=== PATIENT | female | born 1995 | race Caucasian/White ===

== ENCOUNTER 2020-11-25 18:10 | Inpatient (IN) | payer OTHER, MEDICAID, SELFPAY ==
[~2020-11-25] VITALS: Ht 157.5 cm; Wt 81.6 kg
[2020-11-25 18:10] VITALS: BP_SYST 92
[2020-11-25] MEDS ORDERED: NORMAL SALINE 5 ML DISP.SYRIN IVF SCH (18:30)
[2020-11-25] MEDS ORDERED: NACL 0.9% 1,000 ML IV ONE (18:30)
[2020-11-25] MEDS ORDERED: DIPHENHYDRAMINE INJ 50 MG/ML VIAL IVP ONE (18:30)
[2020-11-25] MEDS ORDERED: METOCLOPRAMIDE HCL 10 MG/2 ML VIAL IVP ONE (18:30)
[2020-11-25 18:59] LABS: BASOPHILS % (AUTO) 0.3 % (0.0-2.0); HEMATOCRIT 36.9 % (36-48); HEMOGLOBIN 11.8 g/dL (12.0-16.0); LYMPHOCYTES # (AUTO) 1.1 K/uL (1.0-5.5); LYMPHOCYTES % (AUTO) 9.7 % (20.5-51.5); MEAN CORPUSCULAR HEMOGLOBIN 26 pg (27-31); MEAN CORPUSCULAR HGB CONC 32 % (32-36); MEAN CORPUSCULAR VOLUME 83 fL (79.0-98.0); MONOCYTES # (AUTO) 0.3 K/uL (0.0-1.0); MONOCYTES % (AUTO) 2.6 % (1.7-9.3); NEUTROPHILS # (AUTO) 9.7 K/uL (1.8-7.7); NEUTROPHILS % (AUTO) 87.4 % (40.0-70.0); PLATELET COUNT (AUTO) 325 K/uL (130-430); RED BLOOD CELL COUNT(AUTO) 4.47 MIL/uL (4.2-6.2); RED CELL DISTRIBUTION WIDTH 18.9 % (9.0-15.0); WHITE BLOOD COUNT (AUTO) 11.1 K/uL (4.8-10.8)
[2020-11-25] MEDS ORDERED: MAGNESIUM SULFATE 1 GM/2 ML VIAL IVP ONE (19:00)
[2020-11-25 19:06] LABS: CALCIUM 8.7 mg/dL (8.4-11.0); CREATININE 0.73 mg/dL (0.55-1.30); POTASSIUM 3.8 mmol/L (3.5-5.1)
[2020-11-25 19:20] LABS: BILIRUBIN,URINE NEGATIVE (NEGATIVE); COLOR,URINE YELLOW (YELLOW); GLUCOSE,URINE 2+ (NEGATIVE); KETONES,URINE 3+ (NEGATIVE); LEUKOCYTE ESTERASE ,URINE NEGATIVE (NEGATIVE); NITRITE, URINE NEGATIVE (NEGATIVE); PROTEIN URINE TRACE (NEGATIVE); UROBILINOGEN,URINE 0.2 (0.2-1.0)
[2020-11-25 19:23] LABS: BLOOD, URINE TRACE (NEGATIVE); CLARITY/URINE HAZY (CLEAR)
[2020-11-25] MEDS ORDERED: INSULIN NPH/REGULAR 70-30, 100 UNITS/ML, 10 ML VIAL SUBCUT ONE (19:30)
[2020-11-25] MEDS ORDERED: THIAMINE HCL 100 MG in NS 50 ML IV ONE (19:30)
[2020-11-25 19:40] LABS: ALBUMIN 3.1 g/dL (3.4-4.8); BILIRUBIN,DIRECT 0.2 mg/dL (0.0-0.3); TOTAL BILIRUBIN 0.4 mg/dL (0.0-1.0)
[2020-11-25 19:46] LABS: BACTERIA,URINE FEW /HPF (None Seen); MUCUS,URINE None Seen /LPF (None Seen); WBC,URINE 0-3 /HPF (0-3)
[2020-11-25] MEDS ORDERED: PROMETHAZINE HCL 25 MG TABLET PO PRN (21:45)
[2020-11-25] MEDS ORDERED: THIAMINE HCL 100 MG/ML VIAL ONE (22:05)
[2020-11-25] MEDS ORDERED: MAGNESIUM SULFATE 50 ML IV ONE (22:05)
[2020-11-25] MEDS: NACL 0.9% 1,000 ML IV SCH (23:15)
[2020-11-25] MEDS: INSULIN REGULAR, HUMAN 100 UNITS/ML, 10 ML VIAL (humuLIN R) SUBCUT PRN (23:15)
[2020-11-25] MEDS: CALCIUM CARBONATE 500 MG/ TAB.CHEW PO PRN (23:16)
[2020-11-26] MEDS: ONDANSETRON HCL 4 MG/2 ML VIAL IVP PRN ×4 (00:01→20:17)
[2020-11-26] MEDS ORDERED: PROMETHAZINE INJ.Non-Formulary 25 MG/ML AMP IVP PRN (01:45)
[2020-11-26] MEDS: NACL 0.9% 1,000 ML IV SCH ×3 (06:46→23:05)
[2020-11-26 07:03] LABS: ALBUMIN 2.3 g/dL (3.4-4.8); CALCIUM 7.7 mg/dL (8.4-11.0); CREATININE 0.54 mg/dL (0.55-1.30); POTASSIUM 3.5 mmol/L (3.5-5.1); TOTAL BILIRUBIN 0.4 mg/dL (0.0-1.0)
[2020-11-26] MEDS: METOCLOPRAMIDE HCL 10 MG/2 ML VIAL IVP PRN ×2 (08:52→23:05)
[2020-11-26 09:17] VITALS: BP_SYST 85
[2020-11-26] MEDS ORDERED: PANTOPRAZOLE SODIUM 40 MG/VIAL (PROTONIX) IVP ONE (12:00)
[2020-11-26] MEDS: INSULIN REGULAR, HUMAN 100 UNITS/ML, 10 ML VIAL (humuLIN R) SUBCUT PRN (12:38)
[2020-11-26] MEDS ORDERED: DIPHENHYDRAMINE INJ 50 MG/ML VIAL IVP PRN (18:30)
[2020-11-26] MEDS ORDERED: DIPHENHYDRAMINE INJ 50 MG/ML VIAL ONE (18:33)
[2020-11-26] MEDS: cefTRIAXone 1 GM in D5W 50 ML IV SCH (18:37)
[2020-11-27] MEDS: ONDANSETRON HCL 4 MG/2 ML VIAL IVP PRN ×4 (02:22→20:22)
[2020-11-27] MEDS: METOCLOPRAMIDE HCL 10 MG/2 ML VIAL IVP PRN ×4 (05:09→22:27)
[2020-11-27] MEDS: NACL 0.9% 1,000 ML IV SCH (07:41)
[2020-11-27] MEDS: INSULIN REGULAR, HUMAN 100 UNITS/ML, 10 ML VIAL (humuLIN R) SUBCUT PRN (07:42)
[2020-11-27] MEDS: CALCIUM CARBONATE 500 MG/ TAB.CHEW PO PRN (18:44)
[2020-11-27] MEDS: cefTRIAXone 1 GM in D5W 50 ML IV SCH (18:44)
[2020-11-28] MEDS: NACL 0.9% 1,000 ML IV SCH
[2020-11-28] MEDS: CALCIUM CARBONATE 500 MG/ TAB.CHEW PO PRN ×4 (00:10→20:12)
[2020-11-28] MEDS ORDERED: PROMETHAZINE INJ.Non-Formulary 25 MG/ML AMP IVP PRN (01:15)
[2020-11-28] MEDS ORDERED: PROMETHAZINE INJ.Non-Formulary 25 MG/ML AMP IM PRN ×2 (01:30)
[2020-11-28] MEDS: ONDANSETRON HCL 4 MG/2 ML VIAL IVP PRN ×2 (02:17→07:48)
[2020-11-28] MEDS: DEXAMETHASONE SOD PHOSPHATE 4 MG/ML VIAL IVP SCH ×4 (04:00→22:19)
[2020-11-28] MEDS: METOCLOPRAMIDE HCL 10 MG/2 ML VIAL IVP PRN ×2 (04:22→10:02)
[2020-11-28] MEDS ORDERED: DEXAMETHASONE SOD PHOSPHATE 4 MG/ML VIAL ONE (04:42)
[2020-11-28 08:17] LABS: FREE T4 (FREE THYROXINE) 1.2 ng/dl (0.8-1.5); THYROID STIMULATING HORMONE 0.53 uIu/mL (0.36-3.74)
[2020-11-28] MEDS: INSULIN REGULAR, HUMAN 100 UNITS/ML, 10 ML VIAL (humuLIN R) SUBCUT PRN ×2 (10:00→20:15)
[2020-11-28] MEDS: ONDANSETRON HCL 4 MG/2 ML VIAL IVP SCH ×2 (14:05→19:46)
[2020-11-28] MEDS: METOCLOPRAMIDE HCL 10 MG/2 ML VIAL IVP SCH ×2 (15:59→22:17)
[2020-11-28] MEDS ORDERED: FOLIC ACID 1 MG, THIAMINE HCL 100 MG, MAGNESIUM SULFATE 1 GM, MVI 10 ML in NACL 0.9% 1,... IV SCH (21:00)
[2020-11-28] MEDS ORDERED: PANTOPRAZOLE SODIUM 40 MG/VIAL (PROTONIX) ONE (21:44)
[2020-11-28] MEDS: PANTOPRAZOLE SODIUM 40 MG/VIAL (PROTONIX) IVP SCH (22:13)
[2020-11-29] MEDS: ONDANSETRON HCL 4 MG/2 ML VIAL IVP SCH ×4 (01:50→22:08)
[2020-11-29] MEDS: METOCLOPRAMIDE HCL 10 MG/2 ML VIAL IVP SCH ×4 (04:00→22:06)
[2020-11-29] MEDS: CALCIUM CARBONATE 500 MG/ TAB.CHEW PO PRN ×4 (04:01→22:13)
[2020-11-29] MEDS: DEXAMETHASONE SOD PHOSPHATE 4 MG/ML VIAL IVP SCH ×4 (04:03→22:04)
[2020-11-29] MEDS: INSULIN REGULAR, HUMAN 100 UNITS/ML, 10 ML VIAL (humuLIN R) SUBCUT PRN ×3 (06:48→20:25)
[2020-11-29] MEDS ORDERED: FOLIC ACID 1 MG, THIAMINE HCL 100 MG, MAGNESIUM SULFATE 1 GM, MVI 10 ML in NACL 0.9% 1,... IV SCH ×2 (08:00→09:00)
[2020-11-29] MEDS: NACL 0.9% 1,000 ML IV SCH ×2 (09:12→20:32)
[2020-11-29] MEDS: PANTOPRAZOLE SODIUM 40 MG/VIAL (PROTONIX) IVP SCH ×2 (09:47→20:54)
[2020-11-29] MEDS: MVI 10 ML, FOLIC ACID 1 MG in NACL 0.9% 1,000 ML IV SCH (11:03)
[2020-11-29] MEDS: THIAMINE HCL 100 MG, MAGNESIUM SULFATE 1 GM in NS 100 ML IV SCH (11:03)
[2020-11-29] MEDS ORDERED: PROCHLORPERAZINE EDISYLATE 10 MG/2 ML VIAL IM PRN (19:30)
[2020-11-29] MEDS: AMITRIPTYLINE HCL 25 MG TABLET (ELAVIL) PO SCH (20:53)
[2020-11-29] MEDS: PYRIDOXINE HCL 50 MG TABLET PO SCH (20:53)
[2020-11-30] MEDS: ONDANSETRON HCL 4 MG/2 ML VIAL IVP SCH ×4 (03:56→20:59)
[2020-11-30] MEDS: METOCLOPRAMIDE HCL 10 MG/2 ML VIAL IVP SCH ×4 (03:57→20:58)
[2020-11-30] MEDS: NACL 0.9% 1,000 ML IV SCH ×2 (04:04→23:00)
[2020-11-30] MEDS: INSULIN REGULAR, HUMAN 100 UNITS/ML, 10 ML VIAL (humuLIN R) SUBCUT PRN ×3 (06:48→20:55)
[2020-11-30] MEDS: CALCIUM CARBONATE 500 MG/ TAB.CHEW PO PRN (06:53)
[2020-11-30] MEDS: PANTOPRAZOLE SODIUM 40 MG/VIAL (PROTONIX) IVP SCH ×2 (08:55→21:39)
[2020-11-30] MEDS: PYRIDOXINE HCL 50 MG TABLET PO SCH ×3 (09:51→21:38)
[2020-11-30] MEDS: THIAMINE HCL 100 MG, MAGNESIUM SULFATE 1 GM in NS 100 ML IV SCH (09:51)
[2020-11-30] MEDS: MVI 10 ML, FOLIC ACID 1 MG in NACL 0.9% 1,000 ML IV SCH (12:00)
[2020-11-30] MEDS ORDERED: INSULIN REGULAR, HUMAN 100 UNITS/ML, 10 ML VIAL ONE (20:34)
[2020-11-30] MEDS ORDERED: INSULIN NPH 100 UNITS/ML 10 ML VIAL ONE (20:47)
[2020-11-30] MEDS: PROCHLORPERAZINE EDISYLATE 10 MG/2 ML VIAL IM SCH (21:00)
[2020-11-30] MEDS: AMITRIPTYLINE HCL 25 MG TABLET (ELAVIL) PO SCH (21:37)
[2020-12-01] MEDS: PROCHLORPERAZINE EDISYLATE 10 MG/2 ML VIAL IM SCH ×3 (01:00→07:00)
[2020-12-01] MEDS: ONDANSETRON HCL 4 MG/2 ML VIAL IVP SCH ×2 (03:07→08:46)
[2020-12-01] MEDS: METOCLOPRAMIDE HCL 10 MG/2 ML VIAL IVP SCH ×2 (03:08→08:45)
[2020-12-01] MEDS ORDERED: INSULIN NPH/REGULAR 70-30, 100 UNITS/ML, 10 ML VIAL ONE (06:30)
[2020-12-01] MEDS: INSULIN REGULAR, HUMAN 100 UNITS/ML, 10 ML VIAL (humuLIN R) SUBCUT PRN (06:45)
[2020-12-01] MEDS: PANTOPRAZOLE SODIUM 40 MG/VIAL (PROTONIX) IVP SCH (08:45)
[2020-12-01] MEDS: THIAMINE HCL 100 MG, MAGNESIUM SULFATE 1 GM in NS 100 ML IV SCH (08:46)
[2020-12-01] MEDS: PYRIDOXINE HCL 50 MG TABLET PO SCH (11:10)
[2020-12-01] MEDS ORDERED: INSULIN REGULAR, HUMAN 100 UNITS/ML, 10 ML VIAL ONE (12:14)
== END 2020-12-01 12:35 | disposition home or self-care (01) | DRG 832 ==
LOC: SED 18:10 → SPU 20:06
PROVIDERS: ADMIT Obstetrics & Gynecology; ATTEND Obstetrics & Gynecology
DX: O21.0 Mild hyperemesis gravidarum (principal); O24.112 Pre-existing type 2 diabetes mellitus, in pregnancy, second trimester; E11.9 Type 2 diabetes mellitus without complications; Z20.822 Contact with and (suspected) exposure to COVID-19; Z3A.15 15 weeks gestation of pregnancy
CPT/HCPCS: 36415; 36600; 76801; 76817; 80048; 80053; 80076; 81000-TC; 82803-TC; 82947-TC; 82962; 83690-TC; 84439; 84443-TC; 84702-TC; 85025; 86886; 86900; 86901; 87086; 96361; 96372; 96374; 99285; C9113; J0696; J0780; J1100; J1200; J1815; J2405; J2765; J3411; J3475; J3490; J7030; J7060; Q0169

== ENCOUNTER 2020-12-06 18:03 | Observation (INO) | payer MEDICAID, SELFPAY ==
[~2020-12-06] VITALS: Ht 160 cm; Wt 57.2 kg
[2020-12-06 18:12] VITALS: BP_SYST 123
[2020-12-06] MEDS ORDERED: NACL 0.9% 1,000 ML IV ONE (18:30)
[2020-12-06] MEDS ORDERED: METOCLOPRAMIDE HCL 10 MG/2 ML VIAL IVP ONE ×2 (18:45→23:30)
[2020-12-06] MEDS ORDERED: PYRIDOXINE HCL 50 MG TABLET PO SCH (18:45)
[2020-12-06 19:00] LABS: BASOPHILS # (AUTO) 0.1 K/uL (0.0-0.2); BASOPHILS % (AUTO) 0.5 % (0.0-2.0); EOSINOPHILS % (AUTO) 0.2 % (0.0-4.0); HEMOGLOBIN 13.6 g/dL (12.0-16.0); LYMPHOCYTES # (AUTO) 1.2 K/uL (1.0-5.5); LYMPHOCYTES % (AUTO) 12.9 % (20.5-51.5); MEAN CORPUSCULAR HEMOGLOBIN 28 pg (27-31); MEAN CORPUSCULAR HGB CONC 34 % (32-36); MEAN CORPUSCULAR VOLUME 82 fL (79.0-98.0); MONOCYTES # (AUTO) 0.6 K/uL (0.0-1.0); MONOCYTES % (AUTO) 6.4 % (1.7-9.3); NEUTROPHILS # (AUTO) 7.6 K/uL (1.8-7.7); PLATELET COUNT (AUTO) 336 K/uL (130-430); RED BLOOD CELL COUNT(AUTO) 4.91 MIL/uL (4.2-6.2); RED CELL DISTRIBUTION WIDTH 19.5 % (9.0-15.0); WHITE BLOOD COUNT (AUTO) 9.5 K/uL (4.8-10.8)
[2020-12-06 20:05] LABS: ALBUMIN 3.3 g/dL (3.4-4.8); CALCIUM 9.5 mg/dL (8.4-11.0); CREATININE 0.66 mg/dL (0.55-1.30); TOTAL BILIRUBIN 0.4 mg/dL (0.0-1.0)
[2020-12-06 20:14] LABS: POTASSIUM 2.9 mmol/L (3.5-5.1)
[2020-12-06] MEDS ORDERED: KCL 20 mEq in 100 mL (PREMIX) 200 ML IV ONE (20:27)
[2020-12-06] MEDS: POTASSIUM CHLORIDE 20 MEQ TAB.PRT.SR PO ONE ×2 (20:30→20:31)
[2020-12-06] MEDS ORDERED: KCL 40 mEq in 100 mL (PREMIX) 100 ML IV ONE (20:30)
[2020-12-06] MEDS ORDERED: KCL 20 mEq in D5/0.45NS 1000mL 1,000 ML IV SCH (23:00)
[2020-12-06] MEDS ORDERED: MAGNESIUM SULFATE 50 ML IV ONE ×2 (23:15→23:47)
[2020-12-06] MEDS ORDERED: METOCLOPRAMIDE HCL 10 MG/2 ML VIAL ONE (23:24)
[2020-12-06] MEDS ORDERED: FAMOTIDINE 20 MG TABLET PO ONE (23:30)
[2020-12-06] MEDS ORDERED: FAMOTIDINE PF 20 MG/2 ML VIAL IVP ONE (23:45)
[2020-12-06] MEDS ORDERED: KCL 20 mEq in 0.45% NS 1000 mL 1,000 ML IV SCH (23:45)
[2020-12-07] MEDS ORDERED: FAMOTIDINE PF 20 MG/2 ML VIAL IVP ONE
[2020-12-07 00:30] VITALS: BP_SYST 111
[2020-12-07 01:11] VITALS: BP_SYST 111
[2020-12-07] MEDS ORDERED: KCL 20 mEq in 0.45% NS 1000 mL 1,000 ML IV ONE (01:15)
[2020-12-07 07:01] LABS: BASOPHILS % (AUTO) 0.3 % (0.0-2.0); EOSINOPHILS % (AUTO) 0.3 % (0.0-4.0); HEMOGLOBIN 11.2 g/dL (12.0-16.0); LYMPHOCYTES # (AUTO) 1.9 K/uL (1.0-5.5); LYMPHOCYTES % (AUTO) 21.5 % (20.5-51.5); MEAN CORPUSCULAR HEMOGLOBIN 28 pg (27-31); MEAN CORPUSCULAR HGB CONC 34 % (32-36); MEAN CORPUSCULAR VOLUME 82 fL (79.0-98.0); MONOCYTES # (AUTO) 0.6 K/uL (0.0-1.0); NEUTROPHILS # (AUTO) 6.3 K/uL (1.8-7.7); NEUTROPHILS % (AUTO) 70.9 % (40.0-70.0); PLATELET COUNT (AUTO) 285 K/uL (130-430); RED BLOOD CELL COUNT(AUTO) 4.01 MIL/uL (4.2-6.2); RED CELL DISTRIBUTION WIDTH 19.4 % (9.0-15.0); WHITE BLOOD COUNT (AUTO) 8.9 K/uL (4.8-10.8)
[2020-12-07 07:18] LABS: ALBUMIN 2.5 g/dL (3.4-4.8); CALCIUM 7.8 mg/dL (8.4-11.0); CREATININE 0.44 mg/dL (0.55-1.30); POTASSIUM 3.2 mmol/L (3.5-5.1); TOTAL BILIRUBIN 0.3 mg/dL (0.0-1.0)
[2020-12-07] MEDS ORDERED: KCL 40 mEq in 100 mL (PREMIX) 100 ML IV ONE (08:15)
[2020-12-07 08:30] VITALS: BP_SYST 112
[2020-12-07 09:22] VITALS: BP_SYST 112
[2020-12-08] MEDS ORDERED: TRAM100T28 PO (13:46)
== END 2020-12-07 09:30 | disposition home or self-care (01) ==
LOC: SED 18:03 → STU 22:59
PROVIDERS: ADMIT Preventive Medicine Preventive Medicine/Occupational Environmental Medicine; ATTEND Preventive Medicine Preventive Medicine/Occupational Environmental Medicine
DX: O99.282 Endocrine, nutritional and metabolic diseases complicating pregnancy, second trimester (principal); E87.6 Hypokalemia; Z20.822 Contact with and (suspected) exposure to COVID-19; O21.9 Vomiting of pregnancy, unspecified; O26.892 Other specified pregnancy related conditions, second trimester; R55 Syncope and collapse; O24.012 Pre-existing type 1 diabetes mellitus, in pregnancy, second trimester; E10.9 Type 1 diabetes mellitus without complications; Z3A.17 17 weeks gestation of pregnancy
CPT/HCPCS: 36415 ×2; 80053 ×2; 83690; 84443; 85025 ×2; 87426; 93005; 96361; 96365; 96366 ×2; 96368; 96375 ×2; 96376; 99284; G0378 ×2; J2765; J3475; J3480; J3490

== ENCOUNTER 2020-12-08 10:49 | Emergency (ER) | payer MEDICAID, SELFPAY ==
[2020-12-08] MEDS ORDERED: NACL 0.9% 1,000 ML IV ONE (11:15)
[2020-12-08] MEDS ORDERED: METOCLOPRAMIDE HCL 10 MG/2 ML VIAL IVP ONE (11:15)
[2020-12-08 11:27] VITALS: BP_SYST 115
[2020-12-08 11:37] LABS: BASOPHILS # (AUTO) 0.1 K/uL (0.0-0.2); BASOPHILS % (AUTO) 0.8 % (0.0-2.0); EOSINOPHILS % (AUTO) 0.1 % (0.0-4.0); HEMATOCRIT 36.8 % (36-48); HEMOGLOBIN 12.5 g/dL (12.0-16.0); LYMPHOCYTES % (AUTO) 12.9 % (20.5-51.5); MEAN CORPUSCULAR HEMOGLOBIN 28 pg (27-31); MEAN CORPUSCULAR HGB CONC 34 % (32-36); MEAN CORPUSCULAR VOLUME 82 fL (79.0-98.0); MONOCYTES # (AUTO) 0.3 K/uL (0.0-1.0); MONOCYTES % (AUTO) 4.2 % (1.7-9.3); NEUTROPHILS # (AUTO) 6.2 K/uL (1.8-7.7); PLATELET COUNT (AUTO) 320 K/uL (130-430); RED CELL DISTRIBUTION WIDTH 19.6 % (9.0-15.0); WHITE BLOOD COUNT (AUTO) 7.5 K/uL (4.8-10.8)
[2020-12-08 11:55] LABS: ALBUMIN 2.9 g/dL (3.4-4.8); CALCIUM 8.7 mg/dL (8.4-11.0); CREATININE 0.48 mg/dL (0.55-1.30); POTASSIUM 3.2 mmol/L (3.5-5.1); TOTAL BILIRUBIN 0.3 mg/dL (0.0-1.0)
[2020-12-08] MEDS ORDERED: POTASSIUM CHLORIDE 10 MEQ TAB.PRT.SR PO ONE (13:00)
[2020-12-08] MEDS ORDERED: KCL 10 mEq in 50 mL (PREMIX) 50 ML IV ONE (13:00)
[2020-12-08] MEDS ORDERED: TRAM100T28 PO (13:46)
[2020-12-08 14:07] LABS: BLOOD, URINE 1+ (NEGATIVE); CLARITY/URINE CLOUDY (CLEAR); COLOR,URINE YELLOW (YELLOW); GLUCOSE,URINE NEGATIVE (NEGATIVE); KETONES,URINE 3+ (NEGATIVE); LEUKOCYTE ESTERASE ,URINE 2+ (NEGATIVE); NITRITE, URINE NEGATIVE (NEGATIVE); PH,URINE 5.5 (5.0-8.0); PROTEIN URINE NEGATIVE (NEGATIVE); UROBILINOGEN,URINE 0.2 (0.2-1.0)
[2020-12-08 14:38] VITALS: BP_SYST 115
[2020-12-08 14:40] LABS: BACTERIA,URINE MANY /HPF (None Seen); BILIRUBIN,URINE 1+ (NEGATIVE); WBC,URINE 20-50 /HPF (0-3)
[2020-12-08 14:41] LABS: YEAST,URINE Few /HPF (None Seen)
[2020-12-08 14:42] LABS: MUCUS,URINE None Seen /LPF (None Seen)
== END 2020-12-08 14:39 | disposition home or self-care (01) ==
LOC: SED 10:49
DX: O21.8 Other vomiting complicating pregnancy (principal); Z3A.17 17 weeks gestation of pregnancy
CPT/HCPCS: 36415; 80053; 81000; 83690; 85025; 87086; 96361; 96374; 99283; J2765; J7030

== ENCOUNTER 2020-12-30 00:01 | Inpatient (IN) | payer MEDICAID ==
[~2020-12-30] VITALS: Ht 160 cm; Wt 59.0 kg
[2020-12-30] MEDS ORDERED: LR 1,000 ML IV SCH (01:15)
[2020-12-30] MEDS ORDERED: ONDANSETRON HCL 4 MG/2 ML VIAL IVP ONE (01:15)
[2020-12-30 01:24] LABS: BASOPHILS % (AUTO) 0.3 % (0.0-2.0); HEMATOCRIT 37.5 % (36-48); HEMOGLOBIN 12.2 g/dL (12.0-16.0); LYMPHOCYTES # (AUTO) 0.9 K/uL (1.0-5.5); LYMPHOCYTES % (AUTO) 6.9 % (20.5-51.5); MEAN CORPUSCULAR HEMOGLOBIN 28 pg (27-31); MEAN CORPUSCULAR HGB CONC 33 % (32-36); MEAN CORPUSCULAR VOLUME 86 fL (79.0-98.0); MONOCYTES # (AUTO) 0.1 K/uL (0.0-1.0); NEUTROPHILS # (AUTO) 11.7 K/uL (1.8-7.7); NEUTROPHILS % (AUTO) 91.8 % (40.0-70.0); PLATELET COUNT (AUTO) 359 K/uL (130-430); RED BLOOD CELL COUNT(AUTO) 4.36 MIL/uL (4.2-6.2); RED CELL DISTRIBUTION WIDTH 18.8 % (9.0-15.0); WHITE BLOOD COUNT (AUTO) 12.7 K/uL (4.8-10.8)
[2020-12-30 01:34] LABS: CALCIUM 9.8 mg/dL (8.4-11.0); CREATININE 0.71 mg/dL (0.55-1.30)
[2020-12-30 01:39] LABS: ALBUMIN 3.1 g/dL (3.4-4.8); TOTAL BILIRUBIN 0.4 mg/dL (0.0-1.0)
[2020-12-30] MEDS ORDERED: chlorproMAZINE HCL 50 MG/ 2 ML AMP IM ONE ×2 (02:30→21:00)
[2020-12-30] MEDS: INSULIN REGULAR, HUMAN 100 UNITS/ML, 10 ML VIAL SUBCUT PRN ×2 (02:40→04:42)
[2020-12-30] MEDS: CALCIUM CARBONATE 500 MG/ TAB.CHEW PO PRN ×2 (02:52→21:36)
[2020-12-30] MEDS: NACL 0.9% 1,000 ML IV SCH ×2 (04:45→16:00)
[2020-12-30] MEDS: ONDANSETRON HCL 4 MG/2 ML VIAL IVP PRN (05:53)
[2020-12-30] MEDS ORDERED: FOLIC ACID 1 MG, MVI 10 ML in NACL 0.9% 1,000 ML IV ONE (08:15)
[2020-12-30] MEDS ORDERED: INSULIN REGULAR, HUMAN 100 UNITS/ML, 10 ML VIAL SUBCUT ONE ×2 (08:15→12:15)
[2020-12-30] MEDS ORDERED: MAGNESIUM SULFATE 1 GM, THIAMINE HCL 100 MG in NS 100 ML IV ONE (09:00)
[2020-12-30] MEDS: 0.45% NACL 1,000 ML IV SCH (21:00)
[2020-12-30] MEDS: INSULIN REGULAR, HUMAN 100 UNITS/ML, 10 ML VIAL (humuLIN R) SUBCUT PRN (21:45)
[2020-12-31] MEDS: ONDANSETRON HCL 4 MG/2 ML VIAL IVP PRN ×3 (04:07→21:43)
[2020-12-31] MEDS: 0.45% NACL 1,000 ML IV SCH ×2 (04:08→12:19)
[2020-12-31] MEDS: INSULIN REGULAR, HUMAN 100 UNITS/ML, 10 ML VIAL (humuLIN R) SUBCUT PRN ×2 (06:46→11:20)
[2020-12-31] MEDS: [UNRECOGNIZED DRUG - OTHER] SUBCUT SCH (09:00)
[2020-12-31] MEDS: MAGNESIUM SULFATE 1 GM, THIAMINE HCL 100 MG in NS 100 ML IV SCH (09:04)
[2020-12-31] MEDS: FOLIC ACID 1 MG, MVI 10 ML in NACL 0.9% 1,000 ML IV SCH (10:42)
[2021-01-01] MEDS: MAGNESIUM SULFATE 1 GM, THIAMINE HCL 100 MG in NS 100 ML IV SCH (08:04)
[2021-01-01] MEDS: ONDANSETRON HCL 4 MG/2 ML VIAL IVP PRN ×2 (08:04→20:16)
[2021-01-01] MEDS ORDERED: PANTOPRAZOLE SODIUM 40 MG in NS 100 ML IVP ONE (10:15)
[2021-01-01] MEDS: D5/0.45 NS 1,000 ML IV SCH ×2 (10:20→23:33)
[2021-01-01] MEDS: FOLIC ACID 1 MG, MVI 10 ML in NACL 0.9% 1,000 ML IV SCH (10:20)
[2021-01-01] MEDS: SUCRALFATE 1 GM TABLET PO SCH ×4 (11:30→17:43)
[2021-01-01] MEDS: PANTOPRAZOLE SODIUM 40 MG/VIAL (PROTONIX) IVP SCH (12:22)
[2021-01-01] MEDS: METOCLOPRAMIDE HCL 10 MG/2 ML VIAL IVP PRN ×2 (17:43→23:30)
[2021-01-01] MEDS: PROCHLORPERAZINE EDISYLATE 10 MG/2 ML VIAL IM SCH (23:34)
[2021-01-02] MEDS: SUCRALFATE 1 GM TABLET PO SCH ×2 (06:20→11:29)
[2021-01-02] MEDS: PROCHLORPERAZINE EDISYLATE 10 MG/2 ML VIAL IM SCH ×2 (06:21→11:30)
[2021-01-02] MEDS: METOCLOPRAMIDE HCL 10 MG/2 ML VIAL IVP PRN (06:23)
[2021-01-02] MEDS ORDERED: FOLIC ACID 1 MG, MVI 10 ML in NACL 0.9% 1,000 ML IV SCH (09:00)
[2021-01-02] MEDS ORDERED: MAGNESIUM SULFATE 1 GM, THIAMINE HCL 100 MG in NS 100 ML IV SCH (09:00)
[2021-01-02] MEDS ORDERED: FOLIC ACID 1 MG, THIAMINE HCL 100 MG, MAGNESIUM SULFATE 1 GM, MVI 10 ML in NACL 0.9% 1,... IV SCH (09:00)
[2021-01-02] MEDS: [UNRECOGNIZED DRUG - OTHER] SUBCUT SCH (09:18)
[2021-01-02] MEDS: PANTOPRAZOLE SODIUM 40 MG/VIAL (PROTONIX) IVP SCH (09:26)
== END 2021-01-02 15:40 | disposition home or self-care (01) | DRG 566 ==
LOC: SPU 00:01 → OBSVTOIN 12-31 08:17
PROVIDERS: ADMIT Specialist; ATTEND Specialist
DX: O21.0 Mild hyperemesis gravidarum (principal); O24.912 Unspecified diabetes mellitus in pregnancy, second trimester; Z20.822 Contact with and (suspected) exposure to COVID-19; Z3A.20 20 weeks gestation of pregnancy
CPT/HCPCS: 36415; 80053; 82962; 85025; C9113; G0378; J0780; J1815; J2405; J2765; J3230; J3411; J3475; J3490; J7030